=== PATIENT | male | born 1995 | race Caucasian/White ===

== ENCOUNTER 2016-09-18 19:54 | Inpatient (IN) | payer OTHER ==
[~2016-09-18] VITALS: Ht 185.4 cm; Wt 74.1 kg
[2016-09-18] MEDS ORDERED: SODIUM CHLORIDE 0.9% 1000ML 1,000 ML IV STA ×2 (20:21→21:10)
[2016-09-18] MEDS ORDERED: ACETAMINOPHEN 500 MG TAB PO STA (20:21)
[2016-09-18] MEDS ORDERED: IBUPROFEN 800 MG TAB PO STA (20:21)
[2016-09-18 20:37] LABS: HEMATOCRIT 43.8 % (42-52); MEAN CELL VOLUME 80.2 fL (80-100); MEAN CORPUSCULAR HEMOGLOBIN 29.7 pg (25-34); MEAN PLATELET VOLUME 10.8 fL (7.4-10.4); PLATELET COUNT 220 K/uL (130-400); RED BLOOD COUNT 5.46 M/uL (4.7-6.1); WHITE BLOOD COUNT 15.87 K/uL (4.8-10.8)
[2016-09-18] MEDS ORDERED: IBUPROFEN 200 MG TAB ONE (20:45)
[2016-09-18] MEDS ORDERED: IBUPROFEN 600 MG TAB ONE (20:45)
[2016-09-18 20:46] LABS: URINE APPEARANCE CLEAR (CLEAR); URINE BILIRUBIN NEG (NEG); URINE NITRITE NEG (NEG); URINE PH 5.5 (4.5-7.5); URINE SPECIFIC GRAVITY 1.016 (1.000-1.030); UROBILINOGEN NEG (NEG); ZZUR CULT IF INDIC CLEAN CATCH NO
[2016-09-18 20:52] LABS: MANUAL MICROSCOPIC REQUIRED? NO; REVIEW REQ? NO; URINE COLOR DK YELLOW
[2016-09-18 20:53] LABS: BUN/CREATININE RATIO 9.3 (10-20); C-REACTIVE PROTEIN 11.4 mg/dl (0-0.29); CALCIUM 9.1 mg/dl (8.5-10.1); CREATININE 1.3 mg/dl (0.60-1.40); POTASSIUM 3.9 mmol/L (3.5-5.1)
[2016-09-18 21:01] LABS: BASO % 0.1 %; BASO ABS # 0.01 K/uL (0-0.2); COMPLETE YES; IG% 0.4 %; LYMPH % 4.8 %; LYMPH ABS # 0.76 K/uL (1.2-3.4); MONO % 13.2 %; NEUT % 81.5 %
--- NOTE | 2016-09-18 21:11 | DIAGNOSTIC IMAGING REPORT ---
CHEST ONE VIEW PORTABLE HISTORY: fever, cough COMPARISON: None. FINDINGS: Small patchy densities at the left lung base. Right lung is clear. The heart is normal in size. No pleural effusions. No pneumothorax. IMPRESSION: Small patchy densities at the left lung base which favors a pneumonia. Electronically signed by: Ramon Neely M.D. 09/18/2016 9:09 PM Dictated Date/Time: 09/18/2016 9:07 PM
[2016-09-18 21:29] LABS: LYME DISEASE AB IGG NEG (NEG); LYME DISEASE AB IGM NEG (NEG)
[2016-09-18] MEDS ORDERED: PIPERACILLIN/TAZOBACTAM 4.5 GM/100ML D5W IV STA (21:37)
[2016-09-18] MEDS ORDERED: AZITHROMYCIN IV 500 MG in DEXTROSE 5% 250ML 250 ML IV ONE (21:45)
[2016-09-18] MEDS ORDERED: ACETAMINOPHEN 325 MG TAB PO PRN (22:30)
[2016-09-18] MEDS ORDERED: MAGNESIUM HYDROXIDE SUSP 30 ML UDC PO PRN (22:30)
[2016-09-18] MEDS ORDERED: IBUPROFEN 200 MG TAB PO PRN (22:30)
[2016-09-18] MEDS ORDERED: ALUMINUM/MAGNESIUM/SIMETH (MAALOX MAX) 30 ML UDC PO PRN (22:30)
[2016-09-18] MEDS ORDERED: ONDANSETRON INJ 2 MG/ML 2 ML VIAL IV PRN (22:30)
--- NOTE | 2016-09-18 22:40 | History and Physical ---
History & Physical Date & Time of Service: Sep 18, 2016 at 22:38 Chief Complaint: High Fever 104 Primary Care Physician: No Doctor, Assigned History of Present Illness Source: patient, family 21-year-old male with no significant past history presented to the ER today with high fever/ chills , generalized weakness and cough which started about a week ago but has been worse since Saturday. The cough is productive yellowish sputum which started about last week. He states that he has had a decreased appetite and has not been eating much. He had felt sick last week with decreased appetite for a few days but that had gotten better . He denied any chest pain, shortness of breath, wheezing, rashes, sore throat. He also complained about nausea and had 1 episode of vomiting yesterday. Denied any abdominal pain, diarrhea ,dysuria, frequency, urgency, hematuria. Social History Smoking Status: Never Smoker Multi-Drug Resistant Organisms History of MDRO: No Allergies Coded Allergies: No Known Allergies (Verified , 09/18/16) Home Medications No Active Prescriptions or Reported Meds Review of Systems Constitutional: + chills, + fever, + sweats, + weakness Eyes: No worsening of vision ENT: No hearing loss Respiratory: + cough, + sputum, No dyspnea at rest, No dyspnea on exertion, No shortness of breath Cardiovascular: No chest pain Abdomen: No nausea, No pain, No vomiting Musculoskeletal: No joint pain Genitourinary - Male: No dysuria, No hematuria Neurologic: No memory loss Integumentary: No rash Physical Exam Vital Signs Date Time Temp Pulse Resp B/P Pulse Ox O2 Delivery O2 Flow Rate FiO2 09/18/16 21:59 38.1 107 16 120/66 94 Room Air 09/18/16 20:49 129 09/18/16 20:26 39.1 130 09/18/16 19:56 37.4 160 16 120/61 94 Room Air General Appearance: WD/WN, no apparent distress Head: normocephalic Eyes: normal inspection ENT: normal ENT inspection, hearing grossly normal Neck: supple Respiratory/Chest: chest non-tender, lungs clear, normal breath sounds, no respiratory distress, no accessory muscle use Cardiovascular: + tachycardia Abdomen/GI: normal bowel sounds, non tender, soft Back: normal inspection Neurologic/Psych: alert, normal mood/affect, oriented x 3 Skin: + diaphoresis Diagnostics Laboratory Results Results Past 24 Hours Test 09/18/16 00:00 09/18/16 20:15 09/18/16 20:16 Range/Units Urine Color DK YELLOW Urine Appearance CLEAR CLEAR Urine pH 5.5 4.5-7.5 Urine Specific [place] 1.016 1.000-1.030 Urine Protein NEG NEG Urine Glucose (UA) NEG NEG Urine Ketones 4+ NEG Urine Occult Blood NEG NEG Urine Nitrite NEG NEG Urine Bilirubin NEG NEG Urine Urobilinogen NEG NEG Urine Leukocyte Esterase NEG NEG Influenza Type A Antigen Neg for Influ A NEG Influenza Type B Antigen Neg for Influ B NEG White Blood Count 15.87 4.8-10.8 K/uL Red Blood Count 5.46 4.7-6.1 M/uL Hemoglobin 16.2 14.0-18.0 g/dL Hematocrit 43.8 42-52 % Mean Corpuscular Volume 80.2 80-100 fL Mean Corpuscular Hemoglobin 29.7 25-34 pg Mean Corpuscular Hemoglobin Concent 37.0 32-36 g/dl Platelet Count 220 130-400 K/uL Mean Platelet Volume 10.8 7.4-10.4 fL Neutrophils (%) (Auto) 81.5 % Lymphocytes (%) (Auto) 4.8 % Monocytes (%) (Auto) 13.2 % Eosinophils (%) (Auto) 0.0 % Basophils (%) (Auto) 0.1 % Neutrophils # (Auto) 12.94 1.4-6.5 K/uL Lymphocytes # (Auto) 0.76 1.2-3.4 K/uL Monocytes # (Auto) 2.10 0.11-0.59 K/uL Eosinophils # (Auto) 0.00 0-0.5 K/uL Basophils # (Auto) 0.01 0-0.2 K/uL RDW Standard Deviation 34.5 36.4-46.3 fL RDW Coefficient of Variation 11.9 11.5-14.5 % Immature Granulocyte % (Auto) 0.4 % Immature Granulocyte # (Auto) 0.06 0.00-0.02 K/uL Red Blood Cell Morphology Unremarkable Erythrocyte Sedimentation Rate 17 0-14 mm/hr Sodium Level 136 136-145 mmol/L Potassium Level 3.9 3.5-5.1 mmol/L Chloride Level 100 98-107 mmol/L Carbon Dioxide Level 24 21-32 mmol/L Anion Gap 12.0 3-11 mmol/L Blood Urea Nitrogen 12 7-18 mg/dl Creatinine 1.30 0.60-1.40 mg/dl Est Creatinine Clear Calc Drug Dose 95.0 ml/min Estimated GFR () 91.0 Estimated GFR (Non- 78.5 BUN/Creatinine Ratio 9.3 10-20 Random Glucose 115 70-99 mg/dl Calcium Level 9.1 8.5-10.1 mg/dl Total Bilirubin 2.0 0.2-1 mg/dl Aspartate Amino Transf (AST/SGOT) 8 15-37 U/L Alanine Aminotransferase (ALT/SGPT) 20 12-78 U/L Alkaline Phosphatase 63 45-117 U/L C-Reactive Protein 11.40 0-0.29 mg/dl Total Protein 8.4 6.4-8.2 gm/dl Albumin 4.1 3.4-5.0 gm/dl Globulin 4.3 2.5-4.0 gm/dl Albumin/Globulin Ratio 1.0 0.9-2 Lyme Disease IgG Antibody NEG NEG Lyme Disease IgM Antibody NEG NEG Monoscreen NEG NEG Lactic Acid Level 2.4 0.4-2.0 mmol/L Microbiology Results 09/18/16 Blood Culture, Received Pending 09/18/16 Blood Culture, Received Pending Diagnostic Radiology [~ rep ct add3]] CHEST ONE VIEW PORTABLE HISTORY: fever, cough COMPARISON: None. FINDINGS: Small patchy densities at the left lung base. Right lung is clear. The heart is normal in size. No pleural effusions. No pneumothorax. IMPRESSION: Small patchy densities at the left lung base which favors a pneumonia. Impression Assessment and Plan 21-year-old male with no significant past history presented to the ER today with high fever/ chills , generalized weakness and cough which started about a week ago but has been worse since Saturday. Chest x-ray reveals patchy densities of left lung , he is very dehydrated with decreased PO intake. Meets Sepsis criteria with elevated temperature greater than 38, tachycardia, leukocytosis, elevated lactic acid, elevated CRP Sepsis secondary to Community-acquired pneumonia: - Chest x-ray: Small patchy densities at the left lung base which favors a pneumonia. - Blood cultures, sputum culture pending - Lactic acid 2.4, CRP 11.4 - Repeat Lactate - Influenza, monoscreen, Lyme serology negative - Received Zosyn and azithromycin in the ER - Levaquin 750 mg daily starting tomorrow - IVF - Tylenol/Motrin for fever - Chest x-ray ordered for AM Tachycardia: Likely secondary to dehydration and fever - Monitor DVT prophylaxis: SCDs Full code disposition: Medr Level of Care Med/Surg Resuscitation Status FULL RESUSCITATION VTE Prophylaxis VTE Risk Assessment Done? Y/N: Yes Risk Level: Moderate Given or contraindicated: SCD's Resident Tracking Resident Involvement: Resident Care Provided Care Provided: Adult Hospital Medicine Assessment and Plan Attending Addendum: I have physically seen and examined this patient, have directed their medical care, have supervised the medical residents activities, and agree with the H&P as noted above, with the following changes: NONE
--- NOTE | 2016-09-18 22:57 | EMERGENCY ROOM VISIT NOTE ---
History First contact with patient: 20:06 Chief Complaint: FEVER Stated Complaint: HIGH FEVER 104 History of Present Illness The patient is a 21 year old male who presents to the Emergency Room with complaints of fevers, numbness, nausea and cough. The patient states that he has been sick for about one week. He reports that initially, he noticed fevers approximately one week ago. He had some improvement, but his symptoms returned 3 days ago. The patient has had fevers up to 40C. He reports nausea, vomiting , cough and feeling like his entire body is numb and heavy. He reports that he did have some abdominal pain yesterday, but denies any pain at this time. He has had intermittent headaches, but denies neck pain/stiffness. The patient denies any other sick contacts. He denies any sore throat, earaches or rashes. Review of Systems A complete 10-point Review of Systems was discussed with the patient, with pertinent positives and negatives listed in the History of Present Illness. All remaining Review of Systems questions can be considered negative unless otherwise specified. Past Medical/Surgical History Medical Problems: (1) Fever Social History Smoking Status: Never Smoker Current/Historical Medications No Active Prescriptions or Reported Meds Allergies Coded Allergies: No Known Allergies (Verified , 09/18/16) Physical Exam Vital Signs Date Time Temp Pulse Resp B/P Pulse Ox O2 Delivery O2 Flow Rate FiO2 09/18/16 22:30 97 20 121/64 94 Room Air 09/18/16 22:00 104 20 121/61 94 Room Air 09/18/16 21:59 38.1 107 16 120/66 94 Room Air 09/18/16 20:49 129 09/18/16 20:26 39.1 130 09/18/16 19:56 37.4 160 16 120/61 94 Room Air Physical Exam VITALS: Vitals are noted on the nurse's note and reviewed by myself. Vital signs stable. GENERAL: This is a 21-year-old male, in no acute distress, nondiaphoretic, well- developed well-nourished. SKIN: The skin was without rashes. HEAD: Normocephalic atraumatic. EARS: External auditory canals clear, tympanic membranes pearly king without erythema or effusion bilaterally. EYES: Pupils equal round and reactive to light and accommodation. Conjunctivae without injection, sclerae without icterus. NOSE: Patent, turbinates without inflammation or discharge. MOUTH: Mucous membranes moist. Tonsils are not enlarged. Pharynx without erythema or exudate. NECK: Supple without nuchal rigidity. No lymphadenopathy. No meningismus. HEART: Tachycardic, regular rhythm without murmurs gallops or rubs. LUNGS: Clear to auscultation bilaterally without wheezes, rales or rhonchi. No retractions or accessory muscle use. ABDOMEN: Positive bowel sounds x 4. Soft, nontender without masses or organomegaly. NEURO: Patient was alert and oriented to person place and time. Medical Decision & Procedures ER Provider Diagnostic Interpretation: CHEST ONE VIEW PORTABLE HISTORY: fever, cough COMPARISON: None. FINDINGS: Small patchy densities at the left lung base. Right lung is clear. The heart is normal in size. No pleural effusions. No pneumothorax. IMPRESSION: Small patchy densities at the left lung base which favors a pneumonia. Laboratory Results 09/18/16 20:15 Red Blood Count 5.46, Mean Corpuscular Volume 80.2, Mean Corpuscular Hemoglobin 29.7, Mean Corpuscular Hemoglobin Concent 37.0, Mean Platelet Volume 10.8, Neutrophils (%) (Auto) 81.5, Lymphocytes (%) (Auto) 4.8, Monocytes (%) (Auto) 13.2, Eosinophils (%) (Auto) 0.0, Basophils (%) (Auto) 0.1, Neutrophils # (Auto ) 12.94, Lymphocytes # (Auto) 0.76, Monocytes # (Auto) 2.10, Eosinophils # (Auto ) 0.00, Basophils # (Auto) 0.01 09/18/16 20:15 Test 09/18/16 00:00 09/18/16 20:15 09/18/16 20:16 Urine Color DK YELLOW Urine Appearance CLEAR (CLEAR) Urine pH 5.5 (4.5-7.5) Urine Specific [place] 1.016 (1.000-1.030) Urine Protein NEG (NEG) Urine Glucose (UA) NEG (NEG) Urine Ketones 4+ (NEG) Urine Occult Blood NEG (NEG) Urine Nitrite NEG (NEG) Urine Bilirubin NEG (NEG) Urine Urobilinogen NEG (NEG) Urine Leukocyte Esterase NEG (NEG) Influenza Type A Antigen Neg for Influ A (NEG) Influenza Type B Antigen Neg for Influ B (NEG) White Blood Count 15.87 K/uL (4.8-10.8) Red Blood Count 5.46 M/uL (4.7-6.1) Hemoglobin 16.2 g/dL (14.0-18.0) Hematocrit 43.8 % (42-52) Mean Corpuscular Volume 80.2 fL (80-100) Mean Corpuscular Hemoglobin 29.7 pg (25-34) Mean Corpuscular Hemoglobin Concent 37.0 g/dl (32-36) Platelet Count 220 K/uL (130-400) Mean Platelet Volume 10.8 fL (7.4-10.4) Neutrophils (%) (Auto) 81.5 % Lymphocytes (%) (Auto) 4.8 % Monocytes (%) (Auto) 13.2 % Eosinophils (%) (Auto) 0.0 % Basophils (%) (Auto) 0.1 % Neutrophils # (Auto) 12.94 K/uL (1.4-6.5) Lymphocytes # (Auto) 0.76 K/uL (1.2-3.4) Monocytes # (Auto) 2.10 K/uL (0.11-0.59) Eosinophils # (Auto) 0.00 K/uL (0-0.5) Basophils # (Auto) 0.01 K/uL (0-0.2) RDW Standard Deviation 34.5 fL (36.4-46.3) RDW Coefficient of Variation 11.9 % (11.5-14.5) Immature Granulocyte % (Auto) 0.4 % Immature Granulocyte # (Auto) 0.06 K/uL (0.00-0.02) Red Blood Cell Morphology Unremarkable Erythrocyte Sedimentation Rate 17 mm/hr (0-14) Anion Gap 12.0 mmol/L (3-11) Est Creatinine Clear Calc Drug Dose 95.0 ml/min Estimated GFR () 91.0 Estimated GFR (Non- 78.5 BUN/Creatinine Ratio 9.3 (10-20) Calcium Level 9.1 mg/dl (8.5-10.1) Total Bilirubin 2.0 mg/dl (0.2-1) Aspartate Amino Transf (AST/SGOT) 8 U/L (15-37) Alanine Aminotransferase (ALT/SGPT) 20 U/L (12-78) Alkaline Phosphatase 63 U/L (45-117) C-Reactive Protein 11.40 mg/dl (0-0.29) Total Protein 8.4 gm/dl (6.4-8.2) Albumin 4.1 gm/dl (3.4-5.0) Globulin 4.3 gm/dl (2.5-4.0) Albumin/Globulin Ratio 1.0 (0.9-2) Lyme Disease IgG Antibody NEG (NEG) Lyme Disease IgM Antibody NEG (NEG) Monoscreen NEG (NEG) Lactic Acid Level 2.4 mmol/L (0.4-2.0) Medications Administered Medications (Trade) Dose Ordered Sig/Stanislav Route Start Time Stop Time Status Last Admin Dose Admin Sodium Chloride (Nss 1000ml) 1,000 ml @ 999 mls/hr Q1H1M STAT IV 09/18/16 20:21 09/18/16 21:21 DC 09/18/16 20:44 999 MLS/HR Acetaminophen (Tylenol Tab) 500 mg NOW STAT PO 09/18/16 20:21 09/18/16 20:26 DC 09/18/16 20:43 500 MG Ibuprofen (Advil Tab) 200 mg STK-MED ONCE .ROUTE 09/18/16 20:45 09/18/16 20:46 DC 09/18/16 20:44 200 MG Ibuprofen 600 mg 600 mg STK-MED ONCE .ROUTE 09/18/16 20:45 09/18/16 20:46 DC 09/18/16 20:44 600 MG Sodium Chloride (Nss 1000ml) 1,000 ml @ 999 mls/hr Q1H1M STAT IV 09/18/16 21:10 09/18/16 22:10 DC 09/18/16 21:15 999 MLS/HR Piperacillin Sod/ Tazobactam Sod (Zosyn Iv) 4.5 gm NOW STAT IV 09/18/16 21:37 09/18/16 21:38 DC 09/18/16 21:59 4.5 GM ED Course The patient was evaluated as above. Labs were drawn and IV access was obtained. Blood cultures were drawn. Patient was placed on the radiographer cardiac catheterization and monitored throughout the duration of his stay. Patient was medicated with 1 L normal saline solution, 500 mg Tylenol and 800 mg ibuprofen. Chest x-ray was performed and read by radiology as above. There is evidence of pneumonia. Patient was reevaluated and is still tachycardic. He was given a second liter of fluids. Zosyn and azithromycin were ordered. Case was discussed with the [facility] hospitalist, Dr. Wolff. They agreed to evaluate the patient for admission. Medical Decision Differential diagnosis includes sepsis, pneumonia, influenza, Lyme, mononucleosis, strep pharyngitis, among others. The patient is a 21-year-old male who presents today complaining of high fevers , cough and body aches. Labs revealed a leukocytosis of 15.8. Lactic acid was elevated at 2.4. CRP was found to be elevated significantly at 11.4. Chest x- ray shows evidence of left lower lobe pneumonia, likely the source of the patient's infection. Patient remained tachycardic despite IV fluids. He does meet sepsis criteria. He was given Zosyn and azithromycin. He was monitored and remained hemodynamically stable throughout his stay in the emergency department. Case was discussed with the hospitalist, who agreed to find the patient. The patient's case was reviewed with Dr. Watkins, ED attending physician, who agreed with my assessment and treatment plan. Impression Primary Impression: Sepsis Additional Impression: Pneumonia Departure Information Prescriptions No Active Prescriptions or Reported Meds Referrals No Doctor, Assigned (PCP) Patient Instructions [facility] Problem Qualifiers Primary Impression: Sepsis Sepsis type: sepsis due to unspecified organism Qualified Codes: A41.9 - Sepsis, unspecified organism Additional Impression: Pneumonia Pneumonia type: due to unspecified organism Laterality: left Lung location : lower lobe of lung Qualified Codes: J18.1 - Lobar pneumonia, unspecified organism
[2016-09-18 23:30] VITALS: BP 122/76; PULSE 89; TEMP 37.4; O2SAT 98; Ht 185.4 cm; Wt 74.1 kg
[2016-09-18] MEDS: SODIUM CHLORIDE 0.9% 1000ML 1,000 ML IV SCH (23:50)
[2016-09-19] MEDS: LEVOFLOXACIN / D5W 750 MG in PREMIXED IN D5W 150 ML IV SCH ×2 (00:58→21:29)
[2016-09-19] MEDS: SODIUM CHLORIDE 0.9% 1000ML 1,000 ML IV SCH ×3 (06:24→19:49)
[2016-09-19 07:43] VITALS: BP 131/81; PULSE 83; TEMP 36.3; O2SAT 96
[2016-09-19 08:00] VITALS: O2SAT 96
--- NOTE | 2016-09-19 08:49 | DIAGNOSTIC IMAGING REPORT ---
TWO VIEW CHEST CLINICAL HISTORY: Fever. FINDINGS: PA and lateral chest radiographs are compared to study dated 09/18/2016. The cardiomediastinal silhouette is unremarkable. Patchy airspace consolidation at the left lung base is again noted. This is best seen on the lateral projection. The right lung appears clear. No pleural effusion or pneumothorax is identified. The bony thorax appears intact. IMPRESSION: Patchy airspace consolidation is again seen at the left lung base, best visualized on the lateral view. This remains typical in appearance for pneumonia. Radiographic follow-up to resolution is recommended. Electronically signed by: Shakeel Pérez M.D. 09/19/2016 8:47 AM Dictated Date/Time: 09/19/2016 8:46 AM
[2016-09-19 09:52] LABS: BASO % 0.1 %; BASO ABS # 0.01 K/uL (0-0.2); COMPLETE YES; EOS % 0.3 %; HEMATOCRIT 40.4 % (42-52); IG% 0.1 %; LYMPH % 11.8 %; LYMPH ABS # 1.67 K/uL (1.2-3.4); MEAN CELL VOLUME 81.9 fL (80-100); MEAN CORPUSCULAR HEMOGLOBIN 29.6 pg (25-34); MEAN CORPUSCULAR HGB CONC 36.1 g/dl (32-36); MEAN PLATELET VOLUME 10.5 fL (7.4-10.4); MONO % 12.9 %; NEUT % 74.8 %; PLATELET COUNT 190 K/uL (130-400); RED BLOOD COUNT 4.93 M/uL (4.7-6.1); WHITE BLOOD COUNT 14.19 K/uL (4.8-10.8)
[2016-09-19 10:28] LABS: BUN/CREATININE RATIO 8.7 (10-20); CALCIUM 8.2 mg/dl (8.5-10.1)
[2016-09-19 15:38] VITALS: BP 142/93; PULSE 91; TEMP 37; O2SAT 97
[2016-09-19 16:00] VITALS: O2SAT 95
[2016-09-20 00:20] VITALS: BP 121/76; PULSE 84; TEMP 36.8; O2SAT 95
[2016-09-20] MEDS: SODIUM CHLORIDE 0.9% 1000ML 1,000 ML IV SCH ×3 (02:50→13:38)
[2016-09-20 07:12] VITALS: BP 121/75; PULSE 71; TEMP 37.5; O2SAT 97
[2016-09-20 07:33] LABS: BASO % 0.1 %; BASO ABS # 0.01 K/uL (0-0.2); COMPLETE YES; EOS % 0.9 %; IG% 0.4 %; LYMPH % 10.9 %; LYMPH ABS # 1.24 K/uL (1.2-3.4); MEAN CELL VOLUME 80.7 fL (80-100); MEAN CORPUSCULAR HEMOGLOBIN 29.4 pg (25-34); MEAN CORPUSCULAR HGB CONC 36.4 g/dl (32-36); MEAN PLATELET VOLUME 10.4 fL (7.4-10.4); MONO % 16.3 %; NEUT % 71.4 %; PLATELET COUNT 237 K/uL (130-400); RED BLOOD COUNT 4.83 M/uL (4.7-6.1); WHITE BLOOD COUNT 11.36 K/uL (4.8-10.8)
--- NOTE | 2016-09-20 13:58 | Discharge Instructions ---
Discharge Instructions Date of Service Sep 20, 2016. Admission Reason for Admission: FEVER Discharge Discharge Diagnosis / Problem: Community Acquired Pneuomonia Discharge Goals Goal(s): Improve disease control Activity Recommendations Activity Limitations: per Instructions/Follow-up section . Instructions / Follow-Up Instructions / Follow-Up Primary Care Physician in 1 week Current Hospital Diet Patient's current hospital diet: Regular Diet Discharge Diet Recommended Diet: Regular Diet Pending Studies Studies pending at discharge: no Medical Emergencies . Who to Call and When: Medical Emergencies: If at any time you feel your situation is an emergency, please call 911 immediately. . Non-Emergent Contact Non-Emergency issues call your: Primary Care Provider . . "Provider Documentation" section prepared by Emilio Alcantara. VTE Core Measure Inpt VTE Proph given/why not?: SCD's
[2016-09-20] MEDS ORDERED: LVQ750 PO (14:02)
[2016-09-20 14:15] VITALS: BP 121/75; PULSE 71; TEMP 37.5; O2SAT 97
--- NOTE | 2016-09-20 22:53 | DISCHARGE SUMMARY ---
Please see dictated H and P for full details of his presentation. The patient is a 21-year-old gentleman with no past significant medical history, presented with high fevers, chills, generalized weakness, and cough which started 1 week prior to admission. Cough was productive of yellow sputum. He was found to be having left lower lung pneumonia with a leukocytosis of 16,000. Lactic acid was 2.4. He was brought in and given Zosyn with Zithromax in the Emergency Room. He was diagnosed with sepsis secondary to community-acquired pneumonia. He responded well to IV antibiotics and was switched to Levaquin. Leukocytosis went from 16 to 11.4 on the date of discharge. He will follow up with his primary care doctor in 1 week. Seven-day course of Levaquin 750 mg has been prescribed. Time spent reviewing the chart and discussion with the patient on the date of discharge 31 minutes.
== END 2016-09-20 14:30 | disposition home or self-care (01) | DRG 871 ==
LOC: ENRESERVTM → ENRESERVDT → C.EDB 19:55 → C.MS2W 22:37
PROVIDERS: ADMIT Family Medicine; ATTEND Hospitalist
DX: A41.9 Sepsis, unspecified organism (principal); J18.9 Pneumonia, unspecified organism; E86.0 Dehydration

== ENCOUNTER → 2016-11-06 | Outpatient (CLI) | payer OTHER ==
[~2016-11-06] MED LIST: LVQ750 PO
--- NOTE | 2016-11-06 15:56 | DIAGNOSTIC IMAGING REPORT ---
CHEST 2 VIEWS ROUTINE HISTORY: Community acquired pneumonia one month f/u for LLL pneumonia COMPARISON: Chest 09/19/2016. FINDINGS: The lungs are clear. Cardiac silhouette is normal in size. No pleural effusions. No pneumothorax. IMPRESSION: Interval resolution of the left lower lobe airspace opacity. No acute process within the chest. Electronically signed by: Ramon Neely M.D. 11/06/2016 3:54 PM Dictated Date/Time: 11/06/2016 3:53 PM
== END | disposition home or self-care (01) ==
LOC: C.RADBC 15:35
PROVIDERS: ATTEND Family Medicine
DX: J18.9 Pneumonia, unspecified organism (principal)